=== PATIENT | female | born 1960 | race Caucasian/White ===

== ENCOUNTER 2017-06-28 04:49 | Emergency (ER) | payer OTHER ==
[~2017-06-28] VITALS: Ht 162.6 cm; Wt 85.0 kg
[2017-06-28 05:12] VITALS: BP 158/110; PULSE 113; RESP 20; TEMP 97.9; O2SAT 97
[2017-06-28] MEDS ORDERED: PROCHLORPERAZINE INJ 10 MG/2 ML VIAL IV PUSH ONE (05:30)
[2017-06-28] MEDS ORDERED: diphenhydrAMINE HCL 50 MG/ML VIAL IV PUSH ONE (05:30)
[2017-06-28] MEDS ORDERED: ASPIRIN 81 MG CHEW TAB PO ONE (05:45)
[2017-06-28] MEDS ORDERED: SODIUM CHLORIDE 0.9% FLUSH 10 ML FLUSH IVF PRN (05:45)
[2017-06-28] MEDS ORDERED: METOPROLOL TARTRATE 5 MG/5 ML VIAL IVS PRN (05:45)
[2017-06-28 06:02] VITALS: BP 148/76; PULSE 68; RESP 16; O2SAT 98
--- NOTE | 2017-06-28 06:09 | PD ---
HPI . Headache Chief Complaint: Headache Time Seen by Provider: 05:29 Travel History International Travel<30 days: No Contact w/Intl Traveler<30days: No Traveled to known affect area: No History of Present Illness HPI This patient presents with a chief complaint of a headache. She states that her aunt just and that they spent all day yesterday making arrangements. She states that she has had a pounding headache all day. The pain is rated 7/ 10 with no modifying factors. Tonight at about 2:30 AM, she vomited and felt like she had a rapid heartbeat. Her checked her heart rate and blood pressure at home and found them to both be elevated. He subsequently brought her here for further evaluation and treatment. The patient denies any medical problems at all. She has never had a rapid heartbeat before. PFSH Past Medical History ?: Not Past Surgical History Section: Yes Hysterectomy: Yes Other Surgery: Yes (LUMPECTOMY 28 YRS AGO) Social History Alcohol Use: No Tobacco Use: Yes Substance Use: No Allergies-Medications (Allergen,Severity, Reaction): Coded Allergies: No Known Allergies (Unverified , 06/28/17) Reported Meds & Prescriptions Reported Meds & Active Scripts Active No Active Prescriptions or Reported Medications Review of Systems Except as stated in HPI: all other systems reviewed are Neg HENT: Positive: Headaches Cardiovascular: Positive: Palpitations, No: Chest Pain or Discomfort Respiratory: No: Shortness of Breath Gastrointestinal: Positive: Nausea, Vomiting Physical Exam Narrative GENERAL: Awake and alert and in no distress. SKIN: warm/dry. HEAD: Normocephalic. Atraumatic. EYES: Pupils equal and round. No scleral icterus. No injection or drainage. ENT: No nasal bleeding or discharge. Mucous membranes pink and moist. NECK: Trachea midline. Full range of motion without pain.. CARDIOVASCULAR: She initially had an irregularly irregular rate and rhythm with a rate of from 130-150. She is now in a normal sinus rhythm with a rate of about 70-80. RESPIRATORY: No accessory muscle use. Clear to auscultation. Breath sounds equal bilaterally. MUSCULOSKELETAL: No obvious deformities. NEUROLOGICAL: Awake and alert. No obvious cranial nerve deficits. Motor grossly within normal limits. Normal speech. PSYCHIATRIC: Appropriate mood and affect; insight and judgment normal. Data Data Last Documented VS Vital Signs Date Time Temp Pulse Resp B/P (MAP) Pulse Ox O2 Delivery O2 Flow Rate FiO2 06/28/17 07:04 90 18 112/73 (86) 95 Room Air 06/28/17 05:12 97.9 Orders Orders ^ Saline Lock (06/28/17 05:29) Diphenhydramine Inj (Benadryl Inj) (06/28/17 05:30) Prochlorperazine Inj (Compazine Inj) (06/28/17 05:30) Basic Metabolic Panel (Bmp) (06/28/17 05:40) Complete Blood Count With Diff (06/28/17 05:40) Magnesium (Mg) (06/28/17 05:40) Prothrombin Time / Inr (Pt) (06/28/17 05:40) Act Partial Throm Time (Ptt) (06/28/17 05:40) Troponin I (06/28/17 05:40) Chest, Single Ap (06/28/17 05:40) Ecg Monitoring (06/28/17 05:40) Iv Access Insert/Monitor (06/28/17 05:40) Oximetry (06/28/17 05:40) Aspirin Chew (Aspirin Chew) (06/28/17 05:45) Sodium Chloride 0.9% Flush (Ns Flush) (06/28/17 05:45) Metoprolol Tartrate Inj (Lopressor Inj) (06/28/17 05:45) Electrocardiogram (06/28/17 ) Labs Laboratory Tests Test 06/28/17 05:45 White Blood Count 12.1 TH/MM3 Red Blood Count 5.38 MIL/MM3 Hemoglobin 16.1 GM/DL Hematocrit 46.7 % Mean Corpuscular Volume 86.7 FL Mean Corpuscular Hemoglobin 30.0 PG Mean Corpuscular Hemoglobin Concent 34.6 % Red Cell Distribution Width 13.0 % Platelet Count 297 TH/MM3 Mean Platelet Volume 7.8 FL Neutrophils (%) (Auto) 68.2 % Lymphocytes (%) (Auto) 23.5 % Monocytes (%) (Auto) 6.8 % Eosinophils (%) (Auto) 1.3 % Basophils (%) (Auto) 0.2 % Neutrophils # (Auto) 8.3 TH/MM3 Lymphocytes # (Auto) 2.8 TH/MM3 Monocytes # (Auto) 0.8 TH/MM3 Eosinophils # (Auto) 0.2 TH/MM3 Basophils # (Auto) 0.0 TH/MM3 CBC Comment DIFF FINAL Differential Comment Prothrombin Time 9.7 SEC Prothromb Time International Ratio 1.0 RATIO Activated Partial Thromboplast Time 31.1 SEC Blood Urea Nitrogen 13 MG/DL Creatinine 0.70 MG/DL Random Glucose 115 MG/DL Calcium Level 9.1 MG/DL Magnesium Level 2.2 MG/DL Sodium Level 139 MEQ/L Potassium Level 3.5 MEQ/L Chloride Level 107 MEQ/L Carbon Dioxide Level 21.9 MEQ/L Anion Gap 10 MEQ/L Estimat Glomerular Filtration Rate 87 ML/MIN Troponin I LESS THAN 0.02 NG/ML MDM Medical Decision Making Medical Screen Exam Complete: Yes Emergency Medical Condition: Yes Interpretation(s) EKG shows atrial fibrillation with a rate of about [address] segment changes. Repeat EKG shows a sinus rhythm with no acute ischemic changes. Differential Diagnosis Differential diagnosis of tachycardia includes but is not limited to PSVT, atrial fibrillation with a rapid ventricular response, sinus tachycardia (due to hypovolemia, anemia, thyrotoxicosis, PE) Differential diagnosis of headache includes but is not limited to migraine, muscle contraction headache, brain tumor, brain bleed Narrative Course This patient presented with a chief complaint of headache and a secondary complaint of a rapid heart rate and elevated blood pressure. She has had a headache all day. The rapid heart rate just started shortly prior to presentation. She was found to be in atrial fibrillation. She has no history of atrial fibrillation. The patient was given Compazine and Benadryl for her headache and nausea/ vomiting. Aspirin and Lopressor were ordered because of the atrial fibrillation. However , before they could be given but after the Compazine and Benadryl, the patient converted to normal sinus rhythm. In the meantime, her headache is improving. CBC & BMP Diagram 06/28/17 05:45 Calcium Level 9.1, Magnesium Level 2.2 trop < 0.02 The patient will be discharged with instructions to follow-up with her primary care physician when she returns home. Return here if she has recurrence of symptoms. Physician Communication Physician Communication I spoke with Dr. Miller about disposition. This patient spontaneously converted to a sinus rhythm. She has no significant past medical history. Dr. Miller recommended repeat EKG while she is in a sinus rhythm. If this and her blood work are normal. She can be discharged home with instructions to follow-up with her primary care physician when she returns home. Diagnosis Primary Impression: Atrial fibrillation with rapid ventricular response Additional Impression: Headache Qualified Codes: R51 - Headache Patient Instructions: A-fib (Atrial Fibrillation) (DC), Acute Headache (DC), General Instructions Scripts No Active Prescriptions or Reported Meds Disposition: 01 DISCHARGE HOME Condition: Stable Stacey Hurt MD Jun 28, 2017 06:09
[2017-06-28 06:17] LABS: AUTOMATED NEUTROPHIL # 8.3 TH/MM3 (1.8-7.7); BASOPHIL % 0.2 % (0.0-2.0); EOSINOPHIL # 0.2 TH/MM3 (0-0.4); EOSINOPHIL % 1.3 % (0.0-4.0); HEMATOCRIT 46.7 % (35.0-46.0); HEMOGLOBIN 16.1 GM/DL (11.6-15.3); LYMPH % 23.5 % (9.0-44.0); LYMPHOCYTE # 2.8 TH/MM3 (1.0-4.8); MEAN CELL VOLUME 86.7 FL (80.0-100.0); MEAN CORPUSCULAR HGB CONC 34.6 % (32.0-36.0); MEAN PLATELET VOLUME 7.8 FL (7.0-11.0); MONO % 6.8 % (0.0-8.0); MONOCYTE # 0.8 TH/MM3 (0-0.9); NEUT % 68.2 % (16.0-70.0); PLATELET COUNT 297 TH/MM3 (150-450); RED BLOOD COUNT 5.38 MIL/MM3 (4.00-5.30); WHITE BLOOD COUNT 12.1 TH/MM3 (4.0-11.0)
[2017-06-28 06:22] LABS: BICARBONATE 21.9 MEQ/L (21.0-32.0); BLOOD UREA NITROGEN 13 MG/DL (7-18); CALCIUM 9.1 MG/DL (8.5-10.1); CHLORIDE 107 MEQ/L (98-107); GLOMERULAR FILTRATION RATE 87 ML/MIN (>89); GLUCOSE,RANDOM 115 MG/DL (74-106); MAGNESIUM 2.2 MG/DL (1.5-2.5); SODIUM (NA) 139 MEQ/L (136-145)
[2017-06-28 06:25] LABS: PROTHROMBIN TIME - PATIENT 9.7 SEC (9.8-11.6)
--- NOTE | 2017-06-28 06:25 | RADRPT ---
EXAM DATE/TIME: 06/28/2017 05:48 [facility] COMPARISON: No previous studies available for comparison. INDICATIONS : Rapid heart rate and shortness of breath. MEDICAL HISTORY : None. SURGICAL HISTORY : None. ENCOUNTER: Initial ACUITY: 1 day PAIN SCORE: 0/10 LOCATION: Bilateral chest FINDINGS: A single view of the chest demonstrates the lungs to be symmetrically aerated without evidence of mas s, infiltrate or effusion. The cardiomediastinal contours are unremarkable. Osseous structures are intact. CONCLUSION: 1. No acute cardiopulmonary disease. Santy Hope MD on June 28, 2017 at 6:23 Board Certified Radiologist. This report was verified electronically.
[2017-06-28 06:27] LABS: TROPONIN I LESS THAN 0.02 NG/ML (0.02-0.05)
[2017-06-28 07:04] VITALS: BP 112/73; PULSE 76; PULSE 90; RESP 18; O2SAT 95
--- NOTE | 2017-06-28 16:02 | EKG ---
Date Performed: 06/28/2017 Time Performed: 05:29:53 PTAGE: 56 years EKG: ATRIAL FIBRILLATION WITH RAPID VENTRICULAR RESPONSE NONSPECIFIC ST & T-WAVE ABNORMALITY ABN ORMAL RHYTHM ECG NO PREVIOUS TRACING DOCTOR: Rosalva Eubanks Interpretating Date/Time 06/28/2017 16:01:48
--- NOTE | 2017-06-28 16:04 | EKG ---
Date Performed: 06/28/2017 Time Performed: 07:09:22 PTAGE: 56 years EKG: Sinus rhythm POSSIBLE ANTERIOR MYOCARDIAL INFARCTION INFERIOR MYOCARDIAL INFARCTION ABNORMAL ECG Compared to PREVIOUS TRACING , the patient is no longer in atrial fibrillation. PREVIOUS TRACIN 05.29.53 DOCTOR: Rosalva Eubanks Interpretating Date/Time 06/28/2017 16:02:16
== END 2017-06-28 07:04 | disposition home or self-care (01) ==
LOC: NEPE 04:49
DX: I48.91 Unspecified atrial fibrillation (principal); R51 Headache; Z72.0 Tobacco use
CPT/HCPCS: 71045; 80048; 83735; 84484; 85025; 85610; 85730; 93005; 96374; 96375; 99284; J0780; J1200